=== PATIENT | male | born 1960 | race Caucasian/White ===

== ENCOUNTER 2022-07-24 09:11 | Emergency (ER) | payer OTHER, SELFPAY ==
--- NOTE | 2022-07-24 09:12 | ED.SKABFB ---
HPI - Skin/Abscess/Foreign Bdy General Chief complaint: Skin/Abscess/Foreign Body Stated complaint: RASH Time Seen by Provider: 07/24/22 09:12 Source: patient Mode of arrival: ambulatory Limitations: no limitations History of Present Illness HPI narrative: Mr. Montero is a 62-year-old male patient presenting to the clinic today with complaints of a painful rash to his right lower abdomen x2 days. He reports the rash is somewhat painful. He has never had shingles before. He denies any fever or chills. Related Data Home Medications Medication Instructions Recorded Confirmed atorvastatin 20 mg tablet 20 mg PO DAILY 07/24/22 07/24/22 carbidopa ER 50 mg-levodopa 200 mg 1 tablet PO DAILY 07/24/22 07/24/22 tablet,extended release Allergies Allergy/AdvReac Type Severity Reaction Status Date / Time No Known Allergies Allergy Verified 07/24/22 09:26 Review of Systems Review of Systems: Pertinent positives per HPI. Patient denies any fever, chills, headache, visual changes, dizziness, cough, runny nose, sore throat, shortness of breath, chest pain, palpitations, nausea, vomiting, diarrhea, constipation, abdominal pain, or any urinary issues. PMFSH Family History Family History Mother Patient's mother is in good health Sibling Patient's sister is in good health Patient's brother is in good health Father Cerebrovascular accident Social History Social History Smoking status: Never smoker Alcohol intake: current Comments At the time of my signature, I reviewed and agree with the nursing past medical, surgical, social, and family history. There is no relevant family history pertinent to the patient complaint. Exam Narrative: General: Well-developed, well nourished, in no apparent distress Head: Normocephalic, atraumatic. Cardio: Regular rate and rhythm, s1 and s2 normal, no murmur appreciated. Resp: Clear to auscultation bilaterally, no rhonchi, rales, wheezing or rubs. Integumentary: [place], warm, and dry, intact without lesion, erythematous base red painful rash with vesicular lesions to the right lower abdomen wall Course Course Emergency Course: Portions of this record may have been created with voice recognition software. Level of Care: Express Care Visit Vital Signs Vital signs: Vital Signs Temperature 35.9 C L 07/24/22 09:33 Pulse Rate 79 07/24/22 09:33 Respiratory Rate 16 07/24/22 09:33 Blood Pressure 144/98 H 07/24/22 09:33 Pulse Oximetry 100 07/24/22 09:33 Temperature 35.9 C L 07/24/22 09:33 Pulse Rate 79 07/24/22 09:33 Respiratory Rate 16 07/24/22 09:33 Blood Pressure 144/98 H 07/24/22 09:33 Pulse Oximetry 100 07/24/22 09:33 Vital signs reviewed MDM - Skin/Abscess/Foreign Bdy MDM Narrative Medical decision making narrative: At the time of visit patient is resting comfortably on exam table. I suspect patient has herpes zoster. Prescription for Valtrex was sent to the pharmacy. Supportive measures were discussed with the patient and he voiced understanding discharge instructions agrees to treatment plan. Differential Diagnosis Differential diagnosis: Likely abscess of skin or subcutaneous tissue, herpes zoster, cellulitis, insect bites and contact dermatitis Discharge Plan Discharge Clinical Impression: Herpes zoster Qualifiers: Herpes zoster complications: without complications Qualified Code(s): B02.9 - Zoster without complications Patient Disposition: Home, Self-Care Condition: Stable Instructions: Antibiotic Form, Shingles (ED) Additional Instructions: Keep area covered if this is weeping or drainage Take Valtrex as prescribed May apply a lidocaine cream to the affected area to help alleviate pain May take Tylenol/Motrin as needed for pain Increase fluids and stay well hydrated Avoid scratching the
[2022-07-24 09:33] VITALS: BP 144/98; PULSE 79; RESP 16; TEMP 35.9; O2SAT 100
== END 2022-07-24 09:44 | disposition home or self-care (01) ==
PROVIDERS: Emergency Provider Nurse Practitioner Family; PCP Family Medicine Sports Medicine
DX: B02.9 Zoster without complications (principal); G25.81 Restless legs syndrome; E78.00 Pure hypercholesterolemia, unspecified
CPT/HCPCS: 99203; G0463